=== PATIENT | male | born 1975 | race Caucasian/White ===

== ENCOUNTER 2018-05-10 08:08 | Day surgery (SDC) | payer OTHER ==
[~2018-05-10] VITALS: Ht 165.1 cm; Wt 113.4 kg
[2018-05-10] MEDS ORDERED: ceFAZolin 1,000 MG VIAL ONE (10:01)
[2018-05-10] MEDS ORDERED: BUPIVACAINE-MPF 0.25% 30 ML VIAL INJ ONE (10:01)
[2018-05-10] MEDS ORDERED: PROPOFOL 200 MG/20 ML VIAL IV ONE (10:42)
[2018-05-10] MEDS ORDERED: MIDAZOLAM 2 MG/2 ML VIAL ONE (10:48)
[2018-05-10] MEDS ORDERED: fentaNYL 0.05 MG/ML VIAL ONE (10:48)
[2018-05-10] MEDS ORDERED: ONDANSETRON 4 MG/2 ML VIAL IVP PRN (11:20)
[2018-05-10] MEDS ORDERED: HYDROmorphone 1 MG/ML AMP IVP PRN ×2 (11:20→12:30)
[2018-05-10] MEDS ORDERED: KETAMINE 500 MG/5 ML VIAL ONE (11:44)
[2018-05-10 11:45] VITALS: BP 104/61
[2018-05-10] MEDS ORDERED: MORPHINE SULFATE 4 MG/ML SYR IV PRN (12:30)
[2018-05-10] MEDS ORDERED: ACETAMINOPHEN 325 MG TAB PO PRN (12:30)
[2018-05-10 13:10] VITALS: BP_SYST 100; BP_SYST 123; BP_DIAS 59; BP_DIAS 65
--- NOTE | 2018-05-10 13:10 | NUR ---
PATIENT ARRIVED ON [facility] UNIT FROM [place] VIA GURNEY. TRANSFERRED PATIENT TO [facility] BED SAFELY. AAOX3, CALM, COOPERATIVE, SKIN COLOR APPROPRIATE TO ETHNICITY, WARM TO TOUCH. S/P OPEN UMBELICAL HERNIA REPAIR 05/10/18, DRESSING IS DRY AND INTACT. WOUND IS HORIZONTAL WITH AIDA PER OR NURSE REPORTS. SURGICAL ABDOMINAL WOUND WITHIN TOLERABLE AT THIS TIME. ORIENTED PATIENT TO ROOM AND CALL LIGHT. WILL CONTINUE TO MONITOR.
[2018-05-10] MEDS: NACL 0.9% 1,000 ML IV SCH ×3 (13:43→23:58)
--- NOTE | 2018-05-10 14:21 | NUR ---
PATIENT LYING DOWN IN BED SLEEPING, AROUSABLE BY VOICE. NO DISTRESS NOTED. PAIN WITHIN TOLERABLE WILL CONTINUE MONITOR.
[2018-05-10] MEDS: ONDANSETRON 4 MG/2 ML VIAL IV PRN ×2 (15:25→20:24)
[2018-05-10] MEDS: HYDROcodone/APAP 5/325 MG 1 TAB TAB PO PRN (15:26)
[2018-05-10 16:00] VITALS: BP 123/65
--- NOTE | 2018-05-10 18:00 | NUR ---
AMBULATED PATIENT DOWN HALLWAY AND BACK TO BED. NO URINATION YET. NO VOMITING. WILL CONTINUE TO MONITOR.
--- NOTE | 2018-05-10 19:23 | NUR ---
GAVE REPORT TO [employer] NURSE FOR CONTINUITY OF CARE. PATIENT IN STABLE CONDITION.
--- NOTE | 2018-05-10 19:23 | NUR ---
RECEIVED BEDSIDE REPORT FROM IZA GUSTAFSON, PATIENT IN BED, ON RA, AAOX4, ABLE TO FOLLOW COMMANDS, NOTED ABDOMINAL DRESSING, CLEAN AND INTACT, C/O PAIN 10/10 AND FEELING NAUSEOUS. V/S TAKEN BP 104/61 HR 72. WILL MEDICATE ACCORDING TO MD ORDER FOR PAIN. IV IN LEFT AC 20 G INFUSING NS AT 100 ML. EXPLAINED PLAN OF CARE, UPDATED BORED, WILL CONTINUE TO MONITOR.
--- NOTE | 2018-05-10 20:24 | NUR ---
MEDICATED WITH MORPHINE FOR 10/10 PAIN IN ABDOMEN AND ZOFRAN FOR FEELING NAUSEOUS.
--- NOTE | 2018-05-10 22:00 | NUR ---
PATIENT STATES IS COMFORTABLE AND NO MORE NAUSEOUS.
--- NOTE | 2018-05-10 22:45 | NUR ---
PATIENT URINATED 50 ML, STATES WAS UNCOMFORTABLE TO URINATE ANS SLIGHT PAIN, WILL CONTINUE TO MONITOR.
--- NOTE | 2018-05-10 23:58 | NUR ---
STARTED NEW BAG IVF INFUSING NS AT 100 ML.
[2018-05-11] VITALS: BP 104/61
--- NOTE | 2018-05-11 | NUR ---
V/S TAKEN ALL WITHIN BASELINE WILL CONTINUE TO MONITOR.
[2018-05-11] MEDS: HYDROcodone/APAP 5/325 MG 1 TAB TAB PO PRN (00:46)
--- NOTE | 2018-05-11 00:48 | NUR ---
PATIENT C/O PAIN 10/03 MEDICATED WITH NORCO.
--- NOTE | 2018-05-11 01:00 | NUR ---
PATIENT ATTEMPTING TO URINATE PATIENT STATES IT HURTS TO MUCH TO MOVE, EXPLAINED TO PATIENT THAT ONCE PAIN IS BETTER TO TRY AND URINATE. PATIENT STATED OKAY.
--- NOTE | 2018-05-11 03:34 | NUR ---
PATIENT URINATED 800 ML DARK YELLOW URINE, ENCOURAGED TO CONTINUE TO DRINK FLUIDS AND TRY TO VOID, PATIENT NOTED TO HAVE DIFFICULTY STANDING PATIENT STATED HES IN PAIN AND CANT MOVE MUCH.
--- NOTE | 2018-05-11 06:10 | NUR ---
IV D/C, ALL PAPERWORK SIGNED, PATIENT LEFT VIA WC, PATIENT STABLE.
== END 2018-05-11 06:10 | disposition home or self-care (01) ==
LOC: MDS 08:08 → MMU 08:08 → MTU 13:51 → MDS 05-11 06:10
PROVIDERS: ATTEND Surgery
DX: K42.9 Umbilical hernia without obstruction or gangrene (principal); G47.33 Obstructive sleep apnea (adult) (pediatric); F17.210 Nicotine dependence, cigarettes, uncomplicated; E66.01 Morbid (severe) obesity due to excess calories; Z68.41 Body mass index [BMI] 40.0-44.9, adult; Z98.890 Other specified postprocedural states
CPT/HCPCS: 49585; 71045; 87081; C1781; J0690; J2250; J2270; J2405; J2704; J3010; J3490; J7030; J7060; J7120